=== PATIENT | female | born 1985 | race Hispanic/Latino ===

== ENCOUNTER 2018-07-12 22:11 | Emergency (ER) | payer BC ==
[2018-07-12] MEDS ORDERED: ASPIRIN 81 MG CHEWABLE TABLET ONE (22:52)
[2018-07-12] MEDS ORDERED: NA CHLORIDE 0.9% 1,000 ML ONE (22:52)
[2018-07-12 23:00] LABS: Absolute Lymphocytes (CBC) 3.3 K/uL (0.7-4.9); Absolute Monocytes 0.5 K/uL (0.1-1.3); Absolute Neutrophil 6.2 K/uL (1.8-8.0); Basophils % 0.5 % (0-1.3); Eosinophils % 0.8 % (0-4.4); Hematocrit 42.2 % (36.0-45.0); Lymphocytes % 32.8 % (15.3-44.8); MPV 8.3 fL (7.6-11.3); Monocytes % 4.9 % (3.3-12.3); RBC Red Blood Cell Count 4.77 M/uL (3.86-4.86)
[2018-07-12 23:02] LABS: Protime INR 0.9
--- NOTE | 2018-07-12 23:10 | RAD REPORT ---
EXAM DESCRIPTION: RAD - Chest Single View - 07/12/2018 10:54 pm CLINICAL HISTORY: CHEST PAIN Chest pain. COMPARISON: CHEST PA AND LAT 2 VIEW dated 04/11/2009 FINDINGS: Portable technique limits examination quality. The lungs are grossly clear. The heart is normal in size. No displaced fractures. IMPRESSION: No acute intrathoracic process suspected.
[2018-07-12 23:14] LABS: ALT/SGPT 38 U/L (12-78); AST/SGOT 23 U/L (15-37); Albumin 3.7 g/dL (3.4-5.0); Alkaline Phosphatase 107 U/L (45-117); BUN Blood Urea Nitrogen 19 mg/dL (7-18); Bicarbonate 25 mmol/L (21-32); Bilirubin Direct < 0.1 mg/dL (0-0.2); Bilirubin Total 0.3 mg/dL (0.2-1.0); Glucose Level 102 mg/dL (74-106); Lipase 171 U/L (73-393); NT PRO-BNP 5 pg/mL (<125); Potassium 3.6 mmol/L (3.5-5.1); Protein, Total 7.6 g/dL (6.4-8.2); Sodium Level 142 mmol/L (136-145); Troponin (Emerg Dept Use Only) < 0.02 ng/mL (0.0-0.045)
--- NOTE | 2018-07-13 00:51 | EDPHYS ---
Physician Documentation [facility] Name: Ashley Simmons Age: 32 yrs Sex: Female : 1985 Arrival Date: 07/12/2018 Time: 22:14 Bed 16 Private MD: Tomás Bolivar H ED Physician Jimmy Cui HPI: 07/12 23:14 This 32 yrs old Female presents to ER via Ambulatory with complaints of Chest jassi Pain, arm tingling. 23:14 The patient or guardian reports chest pain that is located primarily in the substernal jassi area, anterior chest wall. The pain does not radiate. Associated signs and symptoms: The patient has no apparent associated signs or symptoms. The chest pain is described as aching. Duration: The patient or guardian reports a single episode, that is now resolved. Modifying factors: The symptoms are alleviated by nothing. the symptoms are aggravated by nothing. Severity of pain: At its worst the pain was moderate in the emergency department the pain has resolved. The patient has not experienced similar symptoms in the past. 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 - Social history:: Smoking status: Patient uses tobacco products, smokes one-half pack cigarettes per day. - Ebola Screening: : No symptoms or risks identified at this time. - Family history:: not pertinent. ROS: 23:14 Constitutional: Negative for fever, chills, and weight loss, Eyes: Negative for injury, jassi pain, redness, and discharge, ENT: Negative for injury, pain, and discharge, Neck: Negative for injury, pain, and swelling, Respiratory: Negative for shortness of breath, cough, wheezing, and pleuritic chest pain, Abdomen/GI: Negative for abdominal pain, nausea, vomiting, diarrhea, and constipation, Back: Negative for injury and pain, : Negative for injury, bleeding, discharge, and swelling, MS/Extremity: Negative for injury and deformity, Skin: Negative for injury, rash, and discoloration, Neuro: Negative for headache, weakness, numbness, tingling, and seizure, Psych: Negative for depression, anxiety, suicide ideation, homicidal ideation, and hallucinations, Allergy/Immunology: Negative for hives, rash, and allergies, Endocrine: Negative for neck swelling, polydipsia, polyuria, polyphagia, and marked weight changes. 23:14 Cardiovascular: Positive for chest pain. Exam: 23:14 Constitutional: This is a well developed, well nourished patient who is awake, alert, jassi and in no acute distress. Head/Face: Normocephalic, atraumatic. Eyes: Pupils equal round and reactive to light, extra-ocular motions intact. Lids and lashes normal. Conjunctiva and sclera are non-icteric and not injected. Cornea within normal limits. Periorbital areas with no swelling, redness, or edema. ENT: Nares patent. No nasal discharge, no septal abnormalities noted. Tympanic membranes are normal and external auditory canals are clear. Oropharynx with no redness, swelling, or masses, exudates, or evidence of obstruction, uvula midline. Mucous membranes moist. Neck: Trachea midline, no thyromegaly or masses palpated, and no cervical lymphadenopathy. Supple, full range of motion without nuchal rigidity, or vertebral point tenderness. No Meningismus. Chest/axilla: Normal chest wall appearance and motion. Nontender with no deformity. No lesions are appreciated. Respiratory: Lungs have equal breath sounds bilaterally, clear to auscultation and percussion. No rales, rhonchi or wheezes noted. No increased work of breathing, no retractions or nasal flaring. Abdomen/GI: Soft, non-tender, with normal bowel sounds. No distension or tympany. No guarding or rebound. No evidence of tenderness throughout. Back: No spinal tenderness. No costovertebral tenderness. Full range of motion. Pelvic Exam: Normal external genitalia. Speculum exam with closed cervical os, no discharge or bleeding noted. Bimanual exam with normal adnexa, no adnexal or cervical motion tenderness. Normal uterus. Female : Normal external genitalia. 23:14 Cardiovascular: Rate: normal, Rhythm: regular, Pulses: no pulse deficits are appreciated, Heart sounds: normal, Edema: is not appreciated, JVD: is not appreciated. 23:20 Musculoskeletal/extremity: DVT Exam: No signs of deep vein thrombosis. no pain, no jassi swelling, no tenderness, negative Homans' sign noted on exam, no appreciated bluish discoloration, no erythema, no increased warmth. Vital Signs: 22:20 BP 115 / 76; Pulse 78; Resp 18; Temp 97.1; Pulse Ox 98% on R/A; Weight 89.81 kg; Height la1 5 ft. 3 in. (160.02 cm); 23:47 BP 98 / 64; Pulse 67; Resp 17 S; Pulse Ox 98% on R/A; jd3 07/13 00:00 BP 93 / 68; Pulse 66; Resp 16 S; Pulse Ox 99% on R/A; jd3 01:18 BP 97 / 62; Pulse 68; Resp 17 S; Pulse Ox 98% on R/A; jd3 07/12 22:20 Body Mass Index 35.07 (89.81 kg, 160.02 cm) la1 MDM: 07/12 22:24 Patient medically screened. [facility] 23:17 Data reviewed: vital signs, nurses notes, lab test result(s), EKG, radiologic studies, jassi plain films. 07/12 22:31 Order name: Basic Metabolic Panel; Complete Time: 23:18 [facility] 07/12 22:31 Order name: CBC with Diff; Complete Time: 23:52 [facility] 07/12 22:31 Order name: LFT's; Complete Time: 23:18 [facility] 07/12 22:31 Order name: Magnesium; Complete Time: 23:18 [facility] 07/12 22:31 Order name: NT PRO-BNP; Complete Time: 23:18 [facility] 07/12 22:31 Order name: PT-INR; Complete Time: 23:52 [facility] 07/12 22:31 Order name: Troponin (emerg Dept Use Only); Complete Time: 23:18 [facility] 07/12 22:31 Order name: XRAY Chest (1 view); Complete Time: 23:18 [facility] 07/12 22:31 Order name: EKG; Complete Time: 22:31 [facility] 07/12 22:31 Order name: Lipase; Complete Time: 23:18 [facility] 07/12 22:31 Order name: D-Dimer; Complete Time: 23:52 [facility] 07/12 23:19 Order name: Troponin I; Complete Time: 00:58 [facility] 07/12 22:31 Order name: Cardiac monitoring; Complete Time: 22:55 [facility] 07/12 22:31 Order name: EKG - Nurse/Tech; Complete Time: 22:55 [facility] 07/12 22:31 Order name: IV Saline Lock; Complete Time: 22:56 [facility] 07/12 22:31 Order name: Labs collected and sent; Complete Time: 22:56 [facility] 07/12 22:31 Order name: O2 Per Protocol; Complete Time: 22:56 [facility] 07/12 22:31 Order name: O2 Sat Monitoring; Complete Time: 22:56 [facility] Administered Medications: 22:47 Drug: Aspirin 81 mg Route: PO; jd3 23:45 Follow up: Response: No adverse reaction jd3 22:47 Drug: NS 0.9% 1000 ml Route: IV; Rate: 125 ml/hr; Site: right antecubital; jd3 07/13 01:20 Follow up: Response: No adverse reaction; IV Status: Order to discontinue infusion; IV jd3 Intake: 275ml Disposition: 07/13/18 00:50 Discharged to Home. Impression: Chest pain, unspecified. - Condition is Stable. - Discharge Instructions: Nonspecific Chest Pain, Nonspecific Chest Pain, Ulid-hr-Bylo, Aspirin and Your Heart. - Prescriptions for Pepcid 20 mg Oral Tablet - take 1 tablet by ORAL route every 12 hours for 10 days; 20 tablet. - Medication Reconciliation Form, Thank You Letter, Antibiotic Education, Prescription Opioid Use, Work release form form. - Follow up: Tomás Bolivar; When: 2 - 3 days; Reason: Recheck today's complaints, Continuance of care, Re-evaluation by your physician. - Problem is new. - Symptoms have improved. Signatures: Dispatcher [employer] EDWV Jimmy Cui MD MD cha Attema, Lee, RN RN la1 Saw Roland RN RN jd3 Corrections: (The following items were deleted from the chart) 01:21 00:50 07/13/2018 00:50 Discharged to Home. Impression: Chest pain, unspecified. jd3 Condition is Stable. Discharge Instructions: Nonspecific Chest Pain, Nonspecific Chest Pain, Kjcy-re-Cdpa, Aspirin and Your Heart. Prescriptions for Pepcid 20 mg Oral Tablet - take 1 tablet by ORAL route every 12 hours for 10 days; 20 tablet. and Forms are Medication Reconciliation Form, Thank You Letter, Antibiotic Education, Prescription Opioid Use. Follow up: Tomás Bolivar; When: 2 - 3 days; Reason: Recheck today's complaints, Continuance of care, Re-evaluation by your physician. Problem is new. Symptoms have improved. jassi
--- NOTE | 2018-07-13 00:51 | ER ---
Nurse's Notes [facility] Name: Ashley Simmons Age: 32 yrs Sex: Female : 1985 Arrival Date: 07/12/2018 Time: 22:14 Bed 16 Private MD: Tomás Bolivar H Diagnosis: Chest pain, unspecified Presentation: 07/12 22:19 Presenting complaint: Patient states: About 30 minutes ago I was getting the kids ready la1 for bed and I started to get right sided chest tightness and left arm tingling. Transition of care: patient was not received from another setting of care. Onset of symptoms was July 12, 2018. Risk Assessment: Do you want to hurt yourself or someone else? Patient reports no desire to harm self or others. Initial Sepsis Screen: Does the patient meet any 2 criteria? No. Patient's initial sepsis screen is negative. Does the patient have a suspected source of infection? No. Patient's initial sepsis screen is negative. Care prior to arrival: None. 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 - Social history:: Smoking status: Patient uses tobacco products, smokes one-half pack cigarettes per day. - Ebola Screening: : No symptoms or risks identified at this time. - Family history:: not pertinent. Screenin:03 Abuse screen: Denies threats or abuse. Nutritional screening: No deficits noted. jd3 Tuberculosis screening: No symptoms or risk factors identified. Fall Risk IV access (20 points). Ambulatory Aid- None/Bed Rest/Nurse Assist (0 pts). Gait- Normal/Bed Rest/Wheelchair (0 pts) Mental Status- Oriented to own ability (0 pts). Total Graves Fall Scale indicates No Risk (0-24 pts). Assessment: 23:01 General: Appears in no apparent distress. uncomfortable, Behavior is calm, cooperative, jd3 appropriate for age. Pain: Complains of pain in chest Pain does not radiate. Quality of pain is described as pressure, Pain began 1 hour ago. Neuro: Level of Consciousness is awake, alert, obeys commands, Oriented to person, place, time, situation, Appropriate for age. Cardiovascular: Heart tones present Capillary refill < 3 seconds Patient's skin is warm and dry. Rhythm is regular. Respiratory: Airway is patent Respiratory effort is even, unlabored, Respiratory pattern is regular, symmetrical, Breath sounds are clear bilaterally. GI: Abdomen is non-distended, Patient currently denies abdominal pain. : No signs and/or symptoms were reported regarding the genitourinary system. EENT: No signs and/or symptoms were reported regarding the EENT system. Derm: Skin is intact, Skin is dry, Skin is normal, Skin temperature is warm. Musculoskeletal: Circulation, motion, and sensation intact. Range of motion: intact in all extremities. 23:48 Reassessment: Patient appears in no apparent distress at this time. Patient and/or jd3 family updated on plan of care and expected duration. Pain level reassessed. Patient is alert, oriented x 3, equal unlabored respirations, skin warm/dry/pink. 07/13 00:20 Reassessment: Patient appears in no apparent distress at this time. Patient and/or jd3 family updated on plan of care and expected duration. Pain level reassessed. Patient is alert, oriented x 3, equal unlabored respirations, skin warm/dry/pink. 01:18 Reassessment: Patient appears in no apparent distress at this time. Patient and/or jd3 family updated on plan of care and expected duration. Pain level reassessed. Patient is alert, oriented x 3, equal unlabored respirations, skin warm/dry/pink. Vital Signs: 07/12 22:20 BP 115 / 76; Pulse 78; Resp 18; Temp 97.1; Pulse Ox 98% on R/A; Weight 89.81 kg; Height la1 5 ft. 3 in. (160.02 cm); 23:47 BP 98 / 64; Pulse 67; Resp 17 S; Pulse Ox 98% on R/A; jd3 07/13 00:00 BP 93 / 68; Pulse 66; Resp 16 S; Pulse Ox 99% on R/A; jd3 01:18 BP 97 / 62; Pulse 68; Resp 17 S; Pulse Ox 98% on R/A; jd3 07/12 22:20 Body Mass Index 35.07 (89.81 kg, 160.02 cm) la1 ED Course: 07/12 22:14 Patient arrived in ED. am2 22:14 Tomás Bolivar DO is Private Physician. am2 22:19 Triage completed. la1 22:20 Arm band placed on left wrist. la1 22:24 Jimmy Cui MD is Attending Physician. jassi 22:36 Saw Roland RN is Primary Nurse. jd3 22:42 Inserted saline lock: 20 gauge in right antecubital area, using aseptic technique. mw2 Blood collected. 22:53 X-ray completed. Portable x-ray completed in exam room. Patient tolerated procedure la2 well. 22:54 XRAY Chest (1 view) In Process Unspecified. EDMS 23:04 Patient has correct armband on for positive identification. Placed in gown. Bed in low jd3 position. Call light in reach. Side rails up X 1. classroom monitor on. Pulse ox on. NIBP on. 23:04 Patient maintains SpO2 saturation greater than 95% on room air. jd3 07/13 00:50 Tomás Bolivar DO is Referral Physician. jassi 01:17 No provider procedures requiring assistance completed. IV discontinued, intact, jd3 bleeding controlled, No redness/swelling at site. Pressure dressing applied. Administered Medications: 07/12 22:47 Drug: Aspirin 81 mg Route: PO; jd3 23:45 Follow up: Response: No adverse reaction jd3 22:47 Drug: NS 0.9% 1000 ml Route: IV; Rate: 125 ml/hr; Site: right antecubital; jd3 07/13 01:20 Follow up: Response: No adverse reaction; IV Status: Order to discontinue infusion; IV jd3 Intake: 275ml Intake: 01:20 IV: 275ml; Total: 275ml. jd3 Outcome: 00:50 Discharge ordered by . jassi 01:17 Discharged to home ambulatory. jd3 01:17 Condition: stable 01:17 Discharge instructions given to patient, Instructed on discharge instructions, follow up and referral plans. medication usage, Demonstrated understanding of instructions, follow-up care, medications, Prescriptions given X 1. 01:21 Patient left the ED. jd3 Signatures: Dispatcher [employer] EDMS Jimmy Cui MD MD cha Attema, Lee RN RN [email or web address] Ame Pierre Leslie la2 Davies, Jonathon, RN RN jd3 Davide Corralse 2
[2018-07-13 01:48] VITALS: TEMP 97.1
[2018-07-13 01:51] VITALS: BP 97/62; O2SAT 98
--- NOTE | 2018-07-13 07:05 | EKG ---
Test Date: 2018-07-12 Test Time: 22:31:01 Instructional Support Specialist: JACKIE MEASUREMENT RESULTS: Intervals: Rate: 76 OH: 150 QRSD: 86 QT: 396 QTc: 445 [place]: P: 32 OH: 150 QRS: 29 T: 31 INTERPRETIVE STATEMENTS: Normal sinus rhythm Normal ECG No previous ECG available for comparison Electronically Signed On 07-13-18 07:05:11 CDT by Jimmy Jensen
== END 2018-07-13 01:21 | disposition home or self-care (01) ==
LOC: ER 22:11
DX: R07.9 Chest pain, unspecified (principal); F17.210 Nicotine dependence, cigarettes, uncomplicated
CPT/HCPCS: 36415; 71045; 80048; 80076; 83690; 83735; 83880; 84484; 85025; 85379; 85610; 93005; J7030

== ENCOUNTER 2019-03-14 11:56 | Emergency (ER) | payer BC ==
--- NOTE | 2019-03-14 14:17 | ER ---
Nurse's Notes [facility] Name: Ashley Simmons Age: 33 yrs Sex: Female : 1985 Arrival Date: 03/14/2019 Time: 11:58 Bed 30 Private MD: Tomás Bolivar H Diagnosis: Acute bronchitis Presentation: 03/14 12:29 Presenting complaint: Patient states: cough, fever, chills and body aches x 6 days. Pt rb1 reports her son just recently got over the flu. Transition of care: patient was not received from another setting of care. Onset of symptoms was March 08, 2019. Risk Assessment: Do you want to hurt yourself or someone else? Patient reports no desire to harm self or others. Initial Sepsis Screen: Does the patient meet any 2 criteria? No. Patient's initial sepsis screen is negative. Does the patient have a suspected source of infection? No. Patient's initial sepsis screen is negative. Care prior to arrival: None. 12:29 Method Of Arrival: Ambulatory rb1 12:29 Acuity: CHLOE 4 rb1 Historical: - Allergies: 12:30 No Known Allergies; rb1 - Home Meds: 12:30 None [Active]; rb1 - PMHx: 12:30 None; rb1 - PSHx: 12:30 c Section; rb1 - Immunization history:: Adult Immunizations up to date. - Social history:: Smoking status: Patient uses tobacco products, denies chronic smoking, but will smoke occasionally. - Ebola Screening: : Patient denies exposure to infectious person Patient denies travel to an Ebola-affected area in the 21 days before illness onset. Screenin:15 Abuse screen: Denies threats or abuse. Nutritional screening: No deficits noted. sr5 Tuberculosis screening: No symptoms or risk factors identified. Fall Risk None identified. Assessment: 13:15 General: Appears ill, Behavior is calm, cooperative. Pain: Complains of pain in chest sr5 with cough. Neuro: Level of Consciousness is awake, alert, obeys commands, Oriented to person, place, time, situation. Cardiovascular: Patient's skin is warm and dry. Respiratory: Respiratory effort is even, unlabored, Respiratory pattern is regular, symmetrical. GI: No signs and/or symptoms were reported involving the gastrointestinal system. : No signs and/or symptoms were reported regarding the genitourinary system. EENT: No signs and/or symptoms were reported regarding the EENT system. Derm: No signs and/or symptoms reported regarding the dermatologic system. Musculoskeletal: No signs and/or symptoms reported regarding the musculoskeletal system. 14:11 Reassessment: No changes from previously documented assessment. Awaiting test results. sr5 AA\T\Ox4, equal unlabored resp, nonproductive cough, skin warm/dry/nc, Updated on POC. 14:36 Reassessment:. sr5 Vital Signs: 12:30 BP 107 / 75; Pulse 66; Resp 16; Temp 98.1(O); Pulse Ox 99% on R/A; Weight 88.45 kg; rb1 Height 5 ft. 3 in. (160.02 cm); Pain 7/10; 14:11 BP 96 / 64; Pulse 64; Resp 12; Temp 98.5; Pulse Ox 98% on R/A; Pain 7/10; sr5 12:30 Body Mass Index 34.54 (88.45 kg, 160.02 cm) rb1 14:11 body ache sr5 ED Course: 11:58 Patient arrived in ED. ag5 11:59 Tomás Bolivar DO is Private Physician. ag5 12:08 Tam[facility] Randle F[facility]-C [facility]. snw 12:08 Jimmy Cui MD is Attending Physician. snw 12:30 Triage completed. rb1 12:30 Arm band placed on right wrist. rb1 13:15 Jose Hastings, RN is Primary Nurse. sr5 13:15 Patient has correct armband on for positive identification. Bed in low position. Call sr5 light in reach. 13:50 Strep Sent. jp3 13:50 Strep swab sent to lab. X-ray(s) taken. Patient maintains SpO2 saturation greater than jp3 95% on room air. 13:59 Chest Pa And Lat (2 Views) XRAY In Process Unspecified. EDMS 14:15 Tomás Bolivar DO is Referral Physician. snw 14:37 No provider procedures requiring assistance completed. Patient did not have IV access sr5 during this emergency room visit. Administered Medications: No medications were administered Outcome: 14:16 Discharge ordered by . snw 14:37 Discharged to home ambulatory. sr5 14:37 Condition: good 14:37 Discharge instructions given to patient, Instructed on discharge instructions, follow up and referral plans. medication usage, Demonstrated understanding of instructions, follow-up care, medications, Prescriptions given X 3. 14:37 Patient left the ED. sr5 Signatures: Dispatcher [employer] EDMS Tamara Randle, COLD FOOD PACKER-C COLD FOOD PACKER-Csnw Karen Diop, TEETEE RN rb1 Jose Hastings RN RN sr5 Mesfin Miller jp3 Gem Muñoz [facility]
--- NOTE | 2019-03-14 14:17 | EDPHYS ---
Physician Documentation [facility] Name: Ashley Simmons Age: 33 yrs Sex: Female : 1985 Arrival Date: 03/14/2019 Time: 11:58 Bed 30 Private MD: Tomás Bolivar H ED Physician Jimmy Cui HPI: 03/14 13:53 This 33 yrs old Female presents to ER via Ambulatory with complaints of Fever, snw Cough. 13:53 This 33 yrs old Female presents to ER via Ambulatory with complaints of Fever, snw Cough. 13:53 The patient reports fever, not measured (subjective). Onset: The symptoms/episode snw began/occurred suddenly, 1 week(s) ago, and became persistent. Associated signs and symptoms: Pertinent positives: cough, decreased appetite, headache, sinus congestion, sore throat. Severity of symptoms: At their worst the symptoms were moderate. It is unknown whether or not the patient has had similar symptoms in the past. The patient has not recently seen a physician. Son with influenza recently. Historical: - Allergies: 12:30 No Known Allergies; rb1 - Home Meds: 12:30 None [Active]; rb1 - PMHx: 12:30 None; rb1 - PSHx: 12:30 c Section; rb1 - Immunization history:: Adult Immunizations up to date. - Social history:: Smoking status: Patient uses tobacco products, denies chronic smoking, but will smoke occasionally. - Ebola Screening: : Patient denies exposure to infectious person Patient denies travel to an Ebola-affected area in the 21 days before illness onset. ROS: 13:52 Constitutional: Negative for fever, chills, and weight loss, + bodyaches Eyes: Negative snw for injury, pain, redness, and discharge, ENT: Negative for injury, pain, and discharge, Neck: Negative for injury, pain, and swelling, Cardiovascular: Negative for chest pain, palpitations, and edema, Abdomen/GI: Negative for abdominal pain, nausea, vomiting, diarrhea, and constipation, Back: Negative for injury and pain, : Negative for injury, bleeding, discharge, and swelling, MS/Extremity: Negative for injury and deformity, Skin: Negative for injury, rash, and discoloration, Neuro: Negative for headache, weakness, numbness, tingling, and seizure. 13:52 Respiratory: Positive for cough. Exam: 13:52 Head/Face: Normocephalic, atraumatic. Eyes: Pupils equal round and reactive to light, snw extra-ocular motions intact. Lids and lashes normal. Conjunctiva and sclera are non-icteric and not injected. Cornea within normal limits. Periorbital areas with no swelling, redness, or edema. 13:52 Neck: Trachea midline, no thyromegaly or masses palpated, and no cervical lymphadenopathy. Supple, full range of motion without nuchal rigidity, or vertebral point tenderness. No Meningismus. Chest/axilla: Normal chest wall appearance and motion. Nontender with no deformity. No lesions are appreciated. Cardiovascular: Regular rate and rhythm with a normal S1 and S2. No gallops, murmurs, or rubs. Normal PMI, no JVD. No pulse deficits. Respiratory: Lungs have equal breath sounds bilaterally, clear to auscultation and percussion. No rales, rhonchi or wheezes noted. No increased work of breathing, no retractions or nasal flaring. + tight cough Abdomen/GI: Soft, non-tender, with normal bowel sounds. No distension or tympany. No guarding or rebound. No evidence of tenderness throughout. Back: No spinal tenderness. No costovertebral tenderness. Full range of motion. Skin: Warm, dry with normal turgor. Normal color with no rashes, no lesions, and no evidence of cellulitis. MS/ Extremity: Pulses equal, no cyanosis. Neurovascular intact. Full, normal range of motion. Neuro: Awake and alert, GCS 15, oriented to person, place, time, and situation. Cranial nerves II-XII grossly intact. Motor strength 5/5 in all extremities. Sensory grossly intact. Cerebellar exam normal. Normal gait. Psych: Awake, alert, with orientation to person, place and time. Behavior, mood, and affect are within normal limits. 13:52 Constitutional: The patient appears alert, awake. 13:52 ENT: TM's: are normal, Nose: is normal, Posterior pharynx: erythema, that is moderate, Voice: is hoarse. Vital Signs: 12:30 BP 107 / 75; Pulse 66; Resp 16; Temp 98.1(O); Pulse Ox 99% on R/A; Weight 88.45 kg; rb1 Height 5 ft. 3 in. (160.02 cm); Pain 7/10; 14:11 BP 96 / 64; Pulse 64; Resp 12; Temp 98.5; Pulse Ox 98% on R/A; Pain 7/10; sr5 12:30 Body Mass Index 34.54 (88.45 kg, 160.02 cm) rb1 14:11 body ache sr5 MDM: 13:17 Patient medically screened. jassi 14:21 Data reviewed: vital signs, nurses notes. Data interpreted: Pulse oximetry: on room air snw is 98 %. Interpretation: normal. Counseling: I had a detailed discussion with the patient and/or guardian regarding: the historical points, exam findings, and any diagnostic results supporting the discharge/admit diagnosis, lab results, radiology results, the need for outpatient follow up, for definitive care, to return to the emergency department if symptoms worsen or persist or if there are any questions or concerns that arise at home. Special discussion: Based on the history and exam findings, there is no indication for further emergent testing or inpatient evaluation. I discussed with the patient/guardian the need to see the primary care provider for further evaluation of the symptoms. 03/14 13:42 Order name: Strep; Complete Time: 14:08 snw 03/14 14:07 Order name: Throat Culture EDMS 03/14 13:23 Order name: Chest Pa And Lat (2 Views) XRAY snw Administered Medications: No medications were administered Disposition: 03/14/19 14:16 Discharged to Home. Impression: Acute bronchitis. - Condition is Stable. - Discharge Instructions: Acute Bronchitis, Adult, Cough, Adult, Rehydration, Adult. - Prescriptions for Tessalon Perles 100 mg Oral Capsule - take 1 capsule by ORAL route every 8 hours As needed; 15 capsule. Prednisone 20 mg Oral Tablet - take 2 tablet by ORAL route once daily for 5 days; 10 tablet. Pepcid 20 mg Oral Tablet - take 1 tablet by ORAL route once daily for 10 days; 10 tablet. - Work release form, Medication Reconciliation Form, Thank You Letter, Antibiotic Education, Prescription Opioid Use form. - Follow up: Tomás Bolivar DO; When: 2 - 3 days; Reason: Recheck today's complaints, Continuance of care, Re-evaluation by your physician. Follow up: Emergency Department; When: As needed; Reason: Worsening of condition. Addendum: 03/22/2019 11:04 Co-signature as Attending Physician, Jimmy Cui MD I agree with the assessment and c gusman plan of care. Signatures: Dispatcher [employer] EDJimmy Leavitt MD MD cha Therrien, Shelly, ENVIRONMENTAL PROTECTION SPECIALIST-C ENVIRONMENTAL PROTECTION SPECIALIST-Csnw Karen Diop, RN RN [facility] Jose Hastings RN RN sr5 Corrections: (The following items were deleted from the chart) 03/14 14:37 14:16 03/14/2019 14:16 Discharged to Home. Impression: Acute bronchitis. Condition is sr5 Stable. Forms are Medication Reconciliation Form, Thank You Letter, Antibiotic Education, Prescription Opioid Use. Follow up: Tomás Bolivar; When: 2 - 3 days; Reason: Recheck today's complaints, Continuance of care, Re-evaluation by your physician. Follow up: Emergency Department; When: As needed; Reason: Worsening of condition. snw
[2019-03-14 15:03] VITALS: BP 104/57; TEMP 98; O2SAT 99
--- NOTE | 2019-03-14 15:21 | RAD REPORT ---
EXAM DESCRIPTION: Calvin Gutierrez (2 Views)03/14/2019 1:54 pm CLINICAL HISTORY: Cough COMPARISON: June 2018 FINDINGS: The lungs appear clear of acute infiltrate. The heart is normal size IMPRESSION: No acute abnormalities displayed
== END 2019-03-14 14:37 | disposition home or self-care (01) ==
LOC: ER 11:56
DX: J20.9 Acute bronchitis, unspecified (principal); Z72.0 Tobacco use
CPT/HCPCS: 71046; 87070; 87081; 99284